=== PATIENT | male | born 1955 | race Caucasian/White ===

== ENCOUNTER 2023-01-05 13:16 | Outpatient (CLI) | payer OTHER | END 2023-01-05 13:17 | disposition home or self-care (01) | LOC: CSHMRI 13:16 | PROVIDERS: ATTEND Orthopaedic Surgery | DX: M76.52 Patellar tendinitis, left knee (principal); S76.112A Strain of left quadriceps muscle, fascia and tendon, initial encounter; M25.462 Effusion, left knee ==